=== PATIENT | female | born 1955 | race African-American/Black ===

== ENCOUNTER → 2023-05-09 14:06 | Outpatient (REF) | payer MEDICARE, SELFPAY | LOC: WDC 14:06 | PROVIDERS: ATTENDING PHYSICIAN Nurse Practitioner Family | DX: Z12.31 Encounter for screening mammogram for malignant neoplasm of breast (principal); Z13.820 Encounter for screening for osteoporosis; Z00.00 Encounter for general adult medical examination without abnormal findings | CPT/HCPCS: 77063; 77067 ==